=== PATIENT | female | born 1975 | race Caucasian/White ===

== ENCOUNTER 2023-02-13 07:42 | Outpatient (OUT) | payer OTHER, SELFPAY ==
--- NOTE | 2023-02-13 08:10 | MM_ITS ---
Patient: RICHIE November. Exam Date: 02/13/2023 : 1975 Gender:F Ordering : ARETHA Gutierrez . Admission #: [id number] Family : DR ISAURA VEGA D.O. Order #: [id number] CLICK HERE TO VIEW EXAM RADIOLOGY REPORT PROCEDURE: MM TOMOSYNTHESIS SCREENING BI COMPARISON: None. INDICATIONS: Screening Calculator Name NCI Breast Cancer Risk Assessment Tool 5 Year Breast Cancer Risk 0.70% Lifetime Breast Cancer Risk 7.80% Personal Breast Cancer No Personal Ovarian Cancer No Treatments None Family Cancers Aunt-paternal with breast cancer at age ~50. LOCATION: [facility] BREAST COMPOSITION: Heterogeneously dense,which may obscure small masses. FINDINGS: DIAGNOSTIC CATEGORY 2--BENIGN FINDING: RIGHT BREAST: No significant suspicious finding. Incidental calcified oil cysts. LEFT BREAST: No significant suspicious finding. RECOMMENDATIONS: ROUTINE MAMMOGRAM AND CLINICAL EVALUATION IN 12 MONTHS. PLEASE NOTE: A NORMAL MAMMOGRAM DOES NOT EXCLUDE THE POSSIBILITY OF BREAST CANCER. A CLINICALLY SUSPICIOUS PALPABLE LUMP SHOULD BE BIOPSIED. Dictated by: Clay Morrison M.D. on 02/14/2023 at 14:28 Approved by: Clay Morrison M.D. on 02/14/2023 at 14:33
== END 2023-02-13 07:43 | disposition home or self-care (01) ==
LOC: MAMMO 07:46
PROVIDERS: PCP Family Medicine; Visit Provider Physician Assistant
DX: Z12.31 Encounter for screening mammogram for malignant neoplasm of breast (principal)
CPT/HCPCS: 77063; 77067

== ENCOUNTER 2024-03-23 20:48 | Outpatient (REF) | payer OTHER, SELFPAY | END 2024-03-23 20:49 | disposition home or self-care (01) | LOC: LAB 20:48 | PROVIDERS: PCP Family Medicine; Visit Provider Physician Assistant | DX: Z01.419 Encounter for gynecological examination (general) (routine) without abnormal findings (principal) | CPT/HCPCS: 87624; 88175 ==

== ENCOUNTER 2025-04-05 20:26 | Outpatient (REF) | payer OTHER, SELFPAY ==
--- OUTSIDE RECORDS SUMMARY | 2025-04-05 20:29 | XMS_ITS | CCD ---
Author Organization [facility] Inform ion Partnership [facility] Care Team Providers Care Senior It Assistant Name Role Phone MONICA BELTRAN Attending Unavailable MONICA BELTRAN Consulting Unavailable MONICA BELTRAN Admitting Unavailable DR ERIN HERNANDEZ Primary Care Unavailable MONICA ALEJANDRO Attending Unavailable Linwood Brothers MD Primary Care Provider Unavailable Primary Care Provider Unavailabl e Allergies Allergy Classification Reported Allergen(s) Allergy Type Date of Onset Reaction(s) Facility (1 source) Codeine Drug Allergy 05-12-2013 [facility] Repository (4 sources) Codeine Drug Allergy 01-09-2023 Unknown [facility] Medications Current Medications Medication Drug Class(es) Dates Sig (Normalized) Sig (Original) Estradiol / Progesterone (2 sources) Progesterone, Estrogen Start: 04-05-2025 End: 05-05-2025 Estradiol-Progeste maria del carmen (Bijuva) 0.5-100 MG capsule Indications: Vaginal dryness , Vaginal discomfort Take 0.5-100 mg by mouth Daily 30 capsule 3 04/05/2025 05/05/2025 Active Problems Problem Classification Problem Date Documented Da te Episodic/Chronic Other female genital disorders (2 sources) Vaginal dryness; Translations: [Other specified noninflammatory disorders of vagina] 04-05-2025 Episodic Other female genital disorders (2 sources) Vaginal discomfort; Translations: [Unspecified condition associated with female genital organs and menstrual cycle] 04-05-2025 Episodic Other screening for suspected conditions (not mental disorders or infectious disease) (2 sources) Patient encounter status; Translations: [Encounter for screening mammogram for malignant neoplasm of breast] 04-05-2025 Episodic Results Test Name Value Interpretation Reference Range Facility IGP,APTIMA HPV,AGE GDLNon AGE GDLN ACOG TESTING Note . [facility] Comment on above: TESTS RESULT FLAG UN ITS REF RANGE LAB Clinician Provided Cytology Information Source.............Vagina No. of containers..01 ThinPrep Vial Age Errolo ACOG Bernice... 31 FLAG LEGEND: L-Low Normal,H-High Normal,LL-Alert Low,HH-Alert High <-Panic Low,>-Panic High,A-Abnormal,AA-Critical Abnormal Performed at: 01 =G [address] [address] Love Faith MD, HPV APTIMA Positive Abnormal Negative [facility] Comment on above: This nucleic acid am plification test detects fourteen high- risk HPV types (16,18,31,33,35,39,45,51,52,56,58,59,66,68) without differentiation. HPV GENOTYPE 16 Negative Negative [facility] HPV GENOTYPE 18,45 Negative Negative [facility] Comment on above: Performed at: =G - [facility] [address] [id number] Director Of Land Acquisition: Love Faith MD, Phone: [phone] Performed at: [facility] [address] [id number] Director Of Land Acquisition: Love Faith MD, Phone: [phone] IGP, APTIMA HPV, RFX 16/18,45 Note . [facility] Comment on above: TESTS RESULT FLAG UN ITS REF RANGE LAB DIAGNOSIS: 02 NEGATIVE FOR INTRAEPITHELIAL LESION OR MALIGNANCY. Specimen adequacy: 02 Satisfactory for evaluation. Performed by: 02 Hardeep Wade, Automatic Punch Press Operator ([facility]) . 02 Note: Note 02 The Pap smear is a screening test designed to aid in the detection of premalignant and malignant conditions of the uterine cervix. It is not a diagnostic procedure and should not be used as the sole means of detecting cervical cancer. Both false-positive and false-negative reports do occur. Test Methodology: Note 02 This liquid based ThinPrep(R) pap test was screened with the use of an image guided system. HPV Genotype Reflex Note 02 Criteria met, see HPV Genotype results. FLAG LEGEND: L-Low Normal,H-High Normal,LL-Alert Low,HH-Alert High <-Panic Low,>-Panic High,A-Abnormal,AA-Critical Abnormal Performed at: 02 WB [facility] [address] [facility] [place] [address] Love Faith MD, Interpretation and review of laboratory results Abnormal [facility] [employer] Vital Signs Date Time Vital Sign Value Performing Clinician Claudia aldana 04-05-2025 15:34-0400 Body mass index (BMI) [Ratio] 32.02 kg/m2 Monica CARIAS Work Phone: [facility] 04-05-2025 15:34-0400 Body weight 89.99 kg Monica CARIAS Work Phone: [facility] Healthcare 04-05-2025 15:34-0400 Diastolic blood pressure 88 mm[Hg] Monica Matt PA Work Phone: [facility] 04-05-2025 15:34-0400 Systolic blood pressure 136 mm[Hg] Monica CARIAS Work Phone: [facility] Encounters Encounter Date Encounter Type Care Provider Facility Start: 04-05-2025 End: 04-05-2025 Patient encounter procedure Monica CARIAS Work Phone: [facility] Work Phone: Start: 04-05-2025 End: 04-05-2025 Periodic preventive med est patient 40-64yrs Monica CARIAS Work Phone: [facility] Comment on above: Well woman exam with routine gynecological exam; Breast cancer screening by mammogram; Vaginal dryness; Vaginal discomfort Start: 04-05-2025 End: 04-05-2025 Bamboo flowsheet Monica CARIAS Work Phone: [facility] Start: 04-05-2025 End: 04-05-2025 Bamboo flowsheet Monica Savannah PA Work Phone: [facility] Start: 03-23-2024 End: 03-23-2024 ambulatory MONICA ALEJANDRO Not Available Start: 03-23-2024 End: 03-30-2024 [facility] Result Encounter Monica CARIAS Work Phone: [facility] Unsolicited Start: 03-23-2024 End: 03-30-2024 [facility] Result Encounter Monica CARIAS Work Phone: [facility] Unsolicited Start: 01-09-2023 End: 01-09-2023 ambulatory MONICA ALEJANDRO . Facility: Procedures Date Procedure Procedure Detail Performing Clinician Start: 03-23-2024 IGP,APTIMA HPV,AGE GDLN Monica CARIAS Work Phone: Start: 03-23-2024 Microscopic observat ion [Identifier] in Cervix by Cyto stain Monica CARIAS Work Phone: Start: 06-28-2020 Microscopic observat ion [Identifier] in Cervix by Cyto stain Monica CARIAS Work Phone: Plan of Treatment Date Care Activity Detail Author Start: 03-23-2027 Screening for malignant neoplasm of cervix Pap Smear [facility] Start: 04-13-2026 End: 04-13-2026 Patient encounter procedure 04/13/2026 3:00 PM EDT Procedure Visit [facility] [address] [place] [address] Monica Alejandro PA [address] [place], [place] [id number] [facility] Start: 06-28-2025 Screening for malignant neoplasm of cervix [facility] Start: 04-12-2025 Influenza vaccination Influenza Vacc ine (#1) [facility] Start: 04-05-2025 End: 04-05-2025 Patient encounter procedure 04/05/2025 3:00 PM EDT Office Visit [facility] [address] [place] [id number] Monica Alejandro PA [address] [place], [place] [id number] Arrived [facility] Comment on above: Arrived Start: 04-05-2025 End: 06-05-2026 MG Breast - bilateral Screening Bilateral screening mammogram Imaging Routine Breast cancer screening by mammogram Expected: 04/05/2025 (Approximate), Expires: 06/05/2026 [facility] Work Phone: Comment on above: Expected: 04/05/2025 (Approximate), Expires: 06/05/2026 Start: 03-25-2025 End: 03-25-2025 Patient encounter procedure 03/25/2025 3:00 PM EDT Office Visit [facility] [address] [place] [address] Monica Alejandro PA [address] [place] [address] [facility] Start: 04-12-2024 Influenza vaccination Influenza Vacc ine (#1) [facility] Start: 2016 Screening for malignant neoplasm of breast Mammogram [facility] Start: 1975 Screening for malignant neoplasm of colon [facility] THIN PREP TIS PAP AN D HR HPV DNA THIN PREP TIS PAP AND HR HPV DNA Pathology and Cytology Routine Well woman exam with routine gynecological exam Ordered: 04/05/2025 [facility] Comment on above: Ordered: 04/05/2025 Immunizations Immunization Date Immunization Notes Care Provider Fa cility 06-30-2020 influenza virus vacc ine, unspecified formulation Monica CARIAS Work Phone: [facility] Payers Date Payer Category Payer Private Health Insurance [id number] 2023 Unknown [employer] [id number] 2023-Present [address] [address] [place] [address] [id number] 2023 Unknown [id number] 1975 Unknown [id number] 1975 Unknown [id number] 1958 Unknown [id number] Social History Date Type Detail Facility Tobacco smoking stat [facility] Tobacco smoking consumption unknown [facility] Healthcare Start: 1975 Sex assigned at Female [facility] Start: 01-31-2023 Gender identity Identifies as female gender (finding) [facility] Sexual orientation Not on file [facility] History of Present illness Narrative 04-05-2025 ARETHA Anton - 04/05/2025 3:00 PM EDT Note Date & Type Note Facility 04-05-2025 History of Presen t illness Narrative Reason for Appointment: Patient ID: November Andre is a 49 y.o. female who presents for Well Women Visit Patient presents today for Annual Exam. MEDICATIONS No current outpatient medications ALLERGIES Allergies Allergen Reactions Codeine Unknown PROBLEMS Active Ambulatory Problems Diagnosis Date Noted No Active Ambulatory Problems Resolved Ambulatory Problems Diagnosis Date Noted No Resolved Ambulatory Problems No Additional Past Medical History HISTORY PAST MEDICAL HISTORY SOCIAL HISTORY History reviewed. No pertinent past medical history. Social History Tobacco Use Smoking status: Not on file Smokeless tobacco: Not on file Substance Use Topics Alcohol use: Not on file Drug use: Not on file FAMILY HISTORY No family history on file. SURGICAL HISTORY Past Surgical History: Procedure Laterality Date HYSTERECTOMY REVIEW OF SYSTEMS Review of Systems: Review of Systems Constitutional: Negative. HENT: Negative. Eyes: Negative. Respiratory: Negative. Cardiovascular: Negative. Gastrointestinal: Negative. Genitourinary: Negative. Musculoskeletal: Negative. Skin: Negative. Neurological: Negative. All other systems reviewed and are negative. Hematological: Negative. Endocrine: Negative. Allergic/Immunologic: Negative. OBJECTIVE Objective: Physical Exam Constitutional: Appearance: Normal appearance. She is well-developed. Genitourinary: Vulva normal. Right Adnexa: not tender and no mass present. Left Adnexa: not tender and no mass present. Cervix is absent. No cervical discharge. Uterus is absent. Breasts: Breasts are soft. Right: Normal. Left: Normal. HENT: Head: Normocephalic. Nose: Nose normal. Mouth/Throat: Mouth: Mucous membranes are moist. Cardiovascular: Rate and Rhythm: Normal rate and regular rhythm. Pulmonary: Effort: Pulmonary effort is normal. Breath sounds: Normal breath sounds. Abdominal: General: Bowel sounds are normal. There is no distension. Palpations: Abdomen is soft. Tenderness: There is no abdominal tenderness. There is no guarding or rebound. Musculoskeletal: General: No swelling. Normal range of motion. Cervical back: Normal range of motion. Right lower leg: No edema. Left lower leg: No edema. Neurological: General: No focal deficit present. Mental Status: She is alert and oriented to person, place, and time. Skin: General: Skin is warm and dry. Psychiatric: Mood and Affect: Mood normal. Behavior: Behavior normal. Vitals and nursing note reviewed. Exam conducted with a document design specialist present. Vitals: Estimated body mass index is 32.02 kg/m as calculated from the following: Height as of 03/23/24: 5' 6 . Weight as of this encounter: 198 lb 6.4 oz. BP: 136/88 No LMP recorded. Patient has had a hysterectomy. ASSESSMENT & PLAN ICD-10-CM 1. Well woman exam with routine gynecological exam Z01.419 THIN PREP TIS PAP AND HR HPV DNA CANCELED: Bilateral screening mammogram CANCELED: Bilateral screening mammogram 2. Breast cancer screening by mammogram Z12.31 Bilateral screening mammogram Bilateral screening mammogram CANCELED: THIN PREP TIS PAP AND HR HPV DNA Annual Exam: Patient presents today for an annual exam. Patient states she is doing well and has no complaints. Pap was obtained without difficulty. Orders Placed This Encounter Procedures Bilateral screening mammogram Patient states she is experiencing premenopausal side effects, she wishes to try bijuva for her symptoms. She will reach out to office if symptoms do not improve Follow Up: Patient is to return in one year for annual unless needed otherwise. Documented by Yolanda Alvarado MA on behalf of: ARETHA Anton documented in this encounter [facility] Evaluation note Note Date & Type Note Facility Evaluation note Diagnosis Well woman exam with routine gynecological exam Routine gynecological examination Breast cancer screening by mammogram Vaginal dryness Postmenopausal atrophic vaginitis Vaginal discomfort documented in this encounter [facility] Summary Purpose Family History No Family History Records FoundNo Family History Records FoundNo Family History Records Found Advance Directives No Advanced Directives Records FoundNo Advanced Directives Records FoundNo Advanced Directives Records Found Additional Source Comments INFORMATION SOURCE (unrecogn ized section and content) DATE CREATED AUTHOR 01/18/2023 [facility] DATE CREATED AUTHOR AUTHOR'S ORGANIZ ATION 03/25/[address] [facility] DATE CREATED AUTHOR AUTHOR'S ORGANIZ ATION 05/17/[address] [facility] Care Teams (unrecognized sec tion and content) Senior It Assistant Relationship Specialty Start Date End Date Linwood Brothers MD [address] [place] [address] PCP - General Family Medicine 01/09/23 Reason for Visit (unrecogniz ed section and content) Reason Comments Well Women Visit FOR RECORDS PERTAINING TO PATIENTS WHO ARE OR HAVE BEEN ENROLLED IN A CHEMICAL DEPENDENCY/SUBSTANCEABUSE PROGRAM, SOME INFORMATION MAY BE OMITTED. This clinical summary was aggregated from multiple sources. Caution should be exercised in using it in the provision of clinical care. This summary normalizes information from multiple sources, and as a consequence, information in this document may materially change the coding, format and clinical context of patient data. In addition, data may be omitted in some cases. CLINICAL DECISIONS SHOULD BE BASED ON THE PRIMARY CLINICAL RECORDS. [employer] [facility]. provides no warranty or guarantee of the accuracy or completeness of information in this document.
[2025-04-09 21:08] LABS: Age Gdln ACOG Testing Note (.); HPV Genotype 18,45 Negative (Negative); IGP, Aptima HPV, rfx 16/18,45 Note (.)
== END 2025-04-05 20:27 | disposition home or self-care (01) ==
LOC: LAB 20:26
PROVIDERS: PCP Family Medicine; Visit Provider Physician Assistant
DX: Z01.419 Encounter for gynecological examination (general) (routine) without abnormal findings (principal)
CPT/HCPCS: 87624; 87625; 88175